=== PATIENT | male | born 1980 | race Two or more races ===

== ENCOUNTER 2023-02-04 01:11 | Emergency (ER) | payer OTHER ==
[2023-02-04 01:53] VITALS: BP 122/55; PULSE 88; RESP 18; TEMP 98.3; BMI 29.8
[2023-02-04] MEDS ORDERED: ALBUTEROL SO4 2.5/IPRATROPIUM 0.5 INH SOL 3 ML VIAL.NEB. NEB ONE (03:02)
[2023-02-04] MEDS ORDERED: ALBUTEROL SO4 0.083% IH SOL 2.5 MG/3 ML VIAL.NEB. NEB ONE (03:32)
== END 2023-02-04 05:58 | disposition home or self-care (01) ==
LOC: JER 01:11
PROC: 3E0F7GC Introduction of Other Therapeutic Substance into Respiratory Tract, Via Natural or Artificial Opening (ICD-10-PCS; principal; 2023-02-04)
DX: R06.02 Shortness of breath (principal); R05.9 Cough, unspecified; Z20.822 Contact with and (suspected) exposure to COVID-19
CPT/HCPCS: 0241U-QW; 71045-TC-FY; 93005; 93010; 99285-25

== ENCOUNTER 2023-02-04 06:26 | Inpatient (IN) | payer OTHER ==
[2023-02-04 06:37] VITALS: BMI 29.8
[2023-02-04] MEDS ORDERED: ONDANSETRON *ODT* 4 MG TABLET SL ONE (09:01)
[2023-02-04] MEDS ORDERED: DICYCLOMINE HCL 10 MG CAPSULE PO PRN (09:13)
[2023-02-04] MEDS ORDERED: MAGNESIUM HYDROX 2400MG/30ML ORAL SUSPENSION 30 ML CUP PO PRN (09:13)
[2023-02-04] MEDS ORDERED: BENZOCAINE/MENTHOL (CHLORASEPTIC ) LOZENGE MM PRN (09:13)
[2023-02-04] MEDS ORDERED: guaiFENesin 600 MG TABLET.ER (FP) PO PRN (09:13)
[2023-02-04] MEDS ORDERED: BENZONATATE 200 MG CAPSULE PO PRN (09:13)
[2023-02-04] MEDS ORDERED: MAG HYDROX/AL HYDROX/SIMETH 30 ML UNIT-DOSE CUP PO PRN (09:13)
[2023-02-04] MEDS ORDERED: LOPERAMIDE HCL 2 MG CAPSULE PO PRN (09:13)
[2023-02-04] MEDS ORDERED: IBUPROFEN 600 MG TABLET (FP) PO PRN (09:13)
[2023-02-04] MEDS ORDERED: ACETAMINOPHEN 325 MG TABLET (FP) PO PRN (09:13)
[2023-02-04] MEDS ORDERED: POLYETHYLENE GLYCOL (HEALTHYLAX) 3350 17 GM PACKET PO PRN (09:13)
[2023-02-04] MEDS ORDERED: NALOXONE HCL 0.4 MG/ML VIAL IM PRN (09:13)
[2023-02-04] MEDS ORDERED: IBUPROFEN 400 MG TABLET (FP) PO PRN (09:13)
[2023-02-04] MEDS ORDERED: METHOCARBAMOL 500 MG TABLET PO PRN (09:13)
[2023-02-04] MEDS ORDERED: P-EPHED 60MG/TRIPROLIDI 2.5MG TABLET PO PRN (09:13)
[2023-02-04] MEDS ORDERED: BISMUTH SUBSALICYLATE 262 MG/15 ML BTL PO PRN (09:13)
[2023-02-04] MEDS ORDERED: NICOTINE POLACRILEX 2 MG GUM BUC PRN (09:13)
[2023-02-04] MEDS ORDERED: ONDANSETRON *ODT* 4 MG TABLET SL PRN (09:13)
[2023-02-04] MEDS ORDERED: NALOXONE HCL (KLOXXADO) 8 MG SPRAY NS PRN (09:13)
[2023-02-04] MEDS: hydrOXYzine PAMOATE 25 MG CAPSULE (FP) PO PRN (09:29)
[2023-02-04] MEDS ORDERED: hydrOXYzine PAMOATE 25 MG CAPSULE (FP) PO ONE (09:32)
[2023-02-04] MEDS: PRENATAL VITAMINS W/ FOLIC ACID TABLET (FP) PO SCH (10:33)
[2023-02-04] MEDS ORDERED: cloNIDine HCL 0.1 MG TABLET PO PRN (11:05)
[2023-02-04] MEDS ORDERED: methaDONE HCL 10 MG TABLET (FOR DETOX USE ONLY) PO ONE (11:05)
[2023-02-04] MEDS: diazePAM 5 MG TABLET PO PRN ×2 (17:36→22:36)
[2023-02-04] MEDS ORDERED: MELATONIN 5 MG TABLETS PO SCH (22:00)
[2023-02-04] MEDS ORDERED: THIAMINE HCL 100 MG TABLET (FP) PO SCH (22:00)
[2023-02-05] MEDS: hydrOXYzine PAMOATE 25 MG CAPSULE (FP) PO PRN (00:53)
[2023-02-05] MEDS: diazePAM 5 MG TABLET PO PRN ×2 (03:02→08:47)
[2023-02-05 09:27] VITALS: BP 141/86; PULSE 60; RESP 16; TEMP 97.8
[2023-02-05] MEDS: PRENATAL VITAMINS W/ FOLIC ACID TABLET (FP) PO SCH (10:22)
[2023-02-06] MEDS ORDERED: methaDONE HCL 10 MG TABLET (FOR DETOX USE ONLY) PO ONE (10:00)
[2023-02-08] MEDS ORDERED: methaDONE HCL 10 MG TABLET (FOR DETOX USE ONLY) PO ONE (10:00)
== END 2023-02-05 11:43 | disposition left against medical advice (07) | DRG 770 ==
LOC: YASAS 06:26 → Y3N 09:36
PROVIDERS: ADMIT Allergy & Immunology; ATTEND Surgery
PROC: HZ2ZZZZ Detoxification Services for Substance Abuse Treatment (ICD-10-PCS; principal; 2023-02-04)
DX: F11.23 Opioid dependence with withdrawal (principal); F14.20 Cocaine dependence, uncomplicated; F17.210 Nicotine dependence, cigarettes, uncomplicated
CPT/HCPCS: 0241U-QW; 71045-TC-FY; 93005; 93010; 99285-25; Q0162